=== PATIENT | female | born 1960 | race Caucasian/White ===

== ENCOUNTER 2017-08-02 19:26 | Emergency (ER) | payer BC, OTHER ==
[~2017-08-02] VITALS: Ht 152.4 cm; Wt 79.4 kg
[2017-08-02] MEDS ORDERED: HYDROMORPHONE 1 MG/1 ML DISP.SYRIN IM ONE (19:45)
[2017-08-02] MEDS ORDERED: ONDANSETRON 4 MG/2 ML VIAL IM ONE ×2 (19:45→22:15)
[2017-08-02] MEDS ORDERED: LEVOTHYROXINE 150 MCG TABLET (19:47)
[2017-08-02] MEDS ORDERED: LEVO150T8 PO (19:48)
[2017-08-02] MEDS ORDERED: ONDANSETRON 4 MG/2 ML VIAL ONE ×2 (20:03→22:18)
[2017-08-02] MEDS ORDERED: HYDROMORPHONE 2 MG/1 ML DISP.SYRIN ONE (20:03)
--- NOTE | 2017-08-02 20:19 | NUR ---
PT AT CT
--- NOTE | 2017-08-02 20:27 | NUR ---
PT BACK FROM CT. PT IN BED. PT'S DAUGHTER AT BEDSIDE. PT IS RESTING QUIETLY WITH EYES CLOSED. BREATH SOUND EVEN AND UNLABORED. NO SIGNS OF DISTRESS WITNESSED AT THIS TIME.
[2017-08-02] MEDS ORDERED: METOCLOPRAMIDE HCL 10 MG/2 ML VIAL ONE (20:43)
[2017-08-02] MEDS ORDERED: METOCLOPRAMIDE HCL 10 MG/2 ML VIAL IM ONE ×2 (20:45→21:30)
--- NOTE | 2017-08-02 21:30 | NUR ---
PT BEGAN VOMITING. MADE AWARE. PT REPORTS NO LONGER HAVING HEADACHE.
--- NOTE | 2017-08-02 22:15 | NUR ---
PT STILL VOMITING. MADE AWARE. PT REPORTS STILL BEING PAIN FREE.
--- NOTE | 2017-08-02 22:40 | NUR ---
Patient discharged to home in stable conditon. Written and verbal after care instructions given. Patient verbalizes understanding of instructions. NO VOMITING AND/OR NAUSEA PRESENT UPON DISCHARGE. PT PASSED PO CHALLENGE SUCCESSFULLY. ICE CHIPS WELL TOLERATED. PATIENT LEFT WITH ALL PERSONAL BELONGINGS WITH DAUGHTER. PATIENT DECLINED ZOFRAN PRESCRIPTION.
[2017-08-02 23:21] VITALS: BP 132/74
== END 2017-08-02 22:45 | disposition home or self-care (01) ==
LOC: ER 19:26
DX: G43.909 Migraine, unspecified, not intractable, without status migrainosus (principal); E03.9 Hypothyroidism, unspecified; Z88.8 Allergy status to other drugs, medicaments and biological substances; Z79.899 Other long term (current) drug therapy
CPT/HCPCS: 70450; A4663; J1170; J2405; J2765